=== PATIENT | male | born 1960 | race Caucasian/White ===

== ENCOUNTER 2019-11-03 06:10 | Emergency (ER) | payer MEDICAID ==
[~2019-11-03] VITALS: Ht 170.2 cm; Wt 59.8 kg
[~2019-11-03 06:10] MED LIST: METF500T17 PO; QUET300T5 PO
--- NOTE | 2019-11-03 06:56 | NUR ---
REPORT RECIEVED ÁNGEL BACA RN. PATIENT RESTIGN IN BED, CALL LIGHT IN REACH. JUANCHO SAUNDERS AT BEDSIDE FOR EVALUATION.
[2019-11-03] MEDS ORDERED: HYDROcodone/APAP 5/325 TABLET PO ONE (07:00)
[2019-11-03] MEDS ORDERED: GABAPENTIN 300 MG CAPSULE PO ONE (07:00)
[2019-11-03] MEDS ORDERED: INSU100I34 SC (07:01)
[2019-11-03] MEDS ORDERED: GABA300C10 PO (07:01)
[2019-11-03] MEDS ORDERED: TRAZ-137 PO (07:01)
[2019-11-03] MEDS ORDERED: INSU100I17 SC (07:01)
[2019-11-03] MEDS ORDERED: GABAPENTIN 300 MG CAPSULE ONE (07:29)
[2019-11-03] MEDS ORDERED: HYDROcodone/APAP 5/325 TABLET ONE (07:29)
[2019-11-03 07:42] LABS: BASOPHILS # (AUTO) 0.12 x10^3/uL (0-0.1); BASOPHILS % (AUTO) 1 % (0-1); EOSINOPHILS # (AUTO) 0.11 x10^3/uL (0-0.4); EOSINOPHILS % (AUTO) 1 % (1-7); LYMPHOCYTES # (AUTO) 2.32 x10^3/uL (1-3.4); LYMPHOCYTES % (AUTO) 23 % (22-44); MD NO; MEAN CORPUSCULAR HEMOGLOBIN 24.4 pg (27.5-34.5); MEAN CORPUSCULAR HGB CONC 31.1 g/dL (33.2-36.2); MEAN CORPUSCULAR VOLUME 78.2 fL (81-97); MEAN PLATELET VOLUME 6.3 fL (7.4-10.4); MONOCYTES # (AUTO) 1.02 x10^3/uL (0.2-0.8); MONOCYTES % (AUTO) 10 % (2-9); NEUTROPHILS # (AUTO) 6.42 x10^3/uL (1.8-6.8); NEUTROPHILS % (AUTO) 64 % (42-75); PLATELET COUNT 706 x10^3/uL (130-400); RED BLOOD COUNT 3.54 x10^6/uL (4.38-5.82); RED CELL DISTRIBUTION WIDTH 15.4 % (9.4-14.8)
[2019-11-03 07:43] LABS: ALANINE AMINOTRANSFERASE 20 U/L (12-78); ALBUMIN 2.7 g/dL (3.4-5.0); ANION GAP 7 mmol/L (5-15); CALCIUM 8.2 mg/dL (8.5-10.1); CHLORIDE 103 mmol/L (98-107)
[2019-11-03 07:46] LABS: ALKALINE PHOSPHATASE 144 U/L (45-117); BILIRUBIN,TOTAL 0.6 mg/dL (0.2-1.0); CREATININE 0.97 mg/dL (0.7-1.3); TOTAL PROTEIN 7.2 g/dL (6.4-8.2)
--- NOTE | 2019-11-03 07:59 | NUR ---
DUPLEX US COMPLETED. PT RESTING IN BED
--- NOTE | 2019-11-03 08:41 | NUR ---
PT RESTING IN BED. REPORTS "INTERMITTENT LEG CRAMPS BUT DOESNT HAVE APPETITE AND DOESTN LIKE TO DRINKN WATER." CALL LIGHT IN REACH.
[2019-11-03 08:42] VITALS: BP 116/79
--- NOTE | 2019-11-03 09:06 | NUR ---
DISCHARGE INSTRUCTIONS REVIEWED
== END 2019-11-03 09:30 | disposition home or self-care (01) ==
LOC: ED 09:11
DX: D50.9 Iron deficiency anemia, unspecified (principal); E11.65 Type 2 diabetes mellitus with hyperglycemia; E11.42 Type 2 diabetes mellitus with diabetic polyneuropathy; F17.200 Nicotine dependence, unspecified, uncomplicated
CPT/HCPCS: 36415; 80053; 85025; 93970; 99284

== ENCOUNTER 2020-04-08 14:30 | Inpatient (IN) | payer MEDICAID ==
[~2020-04-08] VITALS: Ht 170.2 cm; Wt 50.6 kg
[~2020-04-08 14:30] MED LIST changes: +GABA300C10 PO; +INSU100I17 SC; +INSU100I34 SC; +TRAZ-175 PO
--- NOTE | 2020-04-08 14:41 | NUR ---
BIB EMS,Lung biopsy left side done today at [facility] when he passed out for 30 sec, given 1500ml NS at the diagnostic center. HX DM. PT in bed with cont sales and service agent, spo2, bp q 30 min, side rails up x2, bp q 30. Awating MD to see. call light in reach.
[2020-04-08] MEDS ORDERED: SODIUM CHLORIDE 0.9% 1,000ML IVBOLUS ONE (17:30)
[2020-04-08] MEDS ORDERED: SODIUM CHLORIDE FLUSH 10ML SYR IVF ONE (17:30)
--- NOTE | 2020-04-08 17:35 | NUR ---
pt brother [phone]
[2020-04-08 17:45] LABS: BASOPHILS # (AUTO) 0.07 x10^3/uL (0-0.1); BASOPHILS % (AUTO) 1 % (0-1); EOSINOPHILS # (AUTO) 0.06 x10^3/uL (0-0.4); EOSINOPHILS % (AUTO) 0 % (1-7); LYMPHOCYTES # (AUTO) 2.34 x10^3/uL (1-3.4); LYMPHOCYTES % (AUTO) 17 % (22-44); MD NO; MEAN CORPUSCULAR HGB CONC 31.8 g/dL (33.2-36.2); MEAN CORPUSCULAR VOLUME 75.4 fL (81-97); MEAN PLATELET VOLUME 6.2 fL (7.4-10.4); MONOCYTES # (AUTO) 0.67 x10^3/uL (0.2-0.8); MONOCYTES % (AUTO) 5 % (2-9); NEUTROPHILS # (AUTO) 10.32 x10^3/uL (1.8-6.8); NEUTROPHILS % (AUTO) 77 % (42-75); PLATELET COUNT 465 x10^3/uL (130-400); RED BLOOD COUNT 4.15 x10^6/uL (4.38-5.82); RED CELL DISTRIBUTION WIDTH 20.9 % (9.4-14.8)
[2020-04-08 17:57] LABS: ALANINE AMINOTRANSFERASE 28 U/L (12-78); ALBUMIN 2.5 g/dL (3.4-5.0); ANION GAP 9 mmol/L (5-15); CALCIUM 8.2 mg/dL (8.5-10.1); CHLORIDE 101 mmol/L (98-107)
[2020-04-08 18:01] LABS: ALKALINE PHOSPHATASE 140 U/L (45-117); BILIRUBIN,TOTAL 0.2 mg/dL (0.2-1.0); TOTAL PROTEIN 6.9 g/dL (6.4-8.2)
[2020-04-08 18:10] LABS: MICROSCOPIC INDICATED
[2020-04-08] MEDS ORDERED: BISACODYL 10 MG SUPP PR PRN (18:30)
[2020-04-08] MEDS ORDERED: ONDANSETRON ODT 4 MG PO PRN (18:30)
[2020-04-08] MEDS ORDERED: POLYETHYLENE GLYCOL 17 GM PACKET PO PRN (18:30)
[2020-04-08] MEDS: AZITHROMYCIN 500 MG in SODIUM CHLORIDE 0.9% 250 ML IV SCH (18:30)
--- NOTE | 2020-04-08 18:53 | NUR ---
REPORT RECIEVED FROM ETHAN AMANDA.
[2020-04-08] MEDS ORDERED: CEFTRIAXONE PMX 1GM/50ML 50 ML ONE (18:57)
[2020-04-08] MEDS: CEFTRIAXONE PMX 1GM/50ML 50 ML IV SCH (19:00)
--- NOTE | 2020-04-08 19:30 | NUR ---
PATIENT UPDATED ON PLAN OF CARE. NO NOTED ACUTE DISTRESS. PATIENT DENIES ANY FURTHER NEEDS. IV SITE HAS BEEN RE-TAPED, AND EDUCATION GIVEN REGARDING NEED FOR ARM EXTENSION.
[2020-04-08 20:00] LABS: ESTIMATED AVERAGE GLUCOSE 355 mg/dL (0-126)
--- NOTE | 2020-04-08 20:17 | NUR ---
PATIENT UPDATED ON PLAN OF CARE. ITALO LONG GIVEN REPORT, ADMINISTERED ANTIBIOTIC THERAPY. ROCEPHIN HAS FINISHED, PATIENT DENIES ANY COMPLICATIONS FROM THERAPY.
[2020-04-08 21:15] VITALS: BP 112/78
[2020-04-08 21:18] VITALS: BP 109/81
[2020-04-08 21:20] VITALS: BP 107/68
[2020-04-08] MEDS: TRAZODONE 100MG TABLET PO SCH (21:45)
[2020-04-08] MEDS: QUETIAPINE 100MG TABLET PO SCH (21:45)
[2020-04-08] MEDS: metFORMIN 500 MG TABLET PO SCH (21:45)
[2020-04-08] MEDS: SODIUM CHLORIDE 0.9% 1,000 ML IV SCH (21:46)
[2020-04-08] MEDS: NICOTINE 7 MG/24 HR PATCH.TD24 TD SCH (21:46)
[2020-04-08] MEDS ORDERED: ALBUTEROL SULFATE 2.5 MG/3 ML NPPB PRN (22:00)
[2020-04-08] MEDS: INSULIN LISPRO 100 UNITS/ML, PEN SQ-INSULIN SCH (22:56)
[2020-04-08 23:37] LABS: TROPONIN I < 0.015 ng/mL (0.000-0.045)
[2020-04-09] VITALS (8 sets, daily range): BP systolic 95–128; BP diastolic 63–74
[2020-04-09] MEDS: SODIUM CHLORIDE 0.9% 1,000 ML IV SCH ×3 (05:10→20:39)
[2020-04-09 05:47] LABS: BASOPHILS # (AUTO) 0.07 x10^3/uL (0-0.1); BASOPHILS % (AUTO) 1 % (0-1); EOSINOPHILS # (AUTO) 0.17 x10^3/uL (0-0.4); EOSINOPHILS % (AUTO) 2 % (1-7); LYMPHOCYTES # (AUTO) 2.54 x10^3/uL (1-3.4); LYMPHOCYTES % (AUTO) 30 % (22-44); MD NO; MEAN CORPUSCULAR HEMOGLOBIN 23.7 pg (27.5-34.5); MEAN CORPUSCULAR HGB CONC 31.4 g/dL (33.2-36.2); MEAN CORPUSCULAR VOLUME 75.6 fL (81-97); MEAN PLATELET VOLUME 6.2 fL (7.4-10.4); MONOCYTES # (AUTO) 0.65 x10^3/uL (0.2-0.8); MONOCYTES % (AUTO) 8 % (2-9); NEUTROPHILS # (AUTO) 5.08 x10^3/uL (1.8-6.8); NEUTROPHILS % (AUTO) 60 % (42-75); PLATELET COUNT 468 x10^3/uL (130-400); RED BLOOD COUNT 3.94 x10^6/uL (4.38-5.82); RED CELL DISTRIBUTION WIDTH 20.9 % (9.4-14.8)
[2020-04-09 05:56] LABS: ANION GAP 5 mmol/L (5-15); CALCIUM 8.1 mg/dL (8.5-10.1); CHLORIDE 107 mmol/L (98-107)
[2020-04-09 06:02] LABS: CREATININE 0.92 mg/dL (0.7-1.3); TROPONIN I < 0.015 ng/mL (0.000-0.045)
[2020-04-09] MEDS: QUETIAPINE 100MG TABLET PO SCH ×2 (08:30→20:35)
[2020-04-09] MEDS: GABAPENTIN 300 MG CAPSULE PO SCH (08:30)
[2020-04-09] MEDS: metFORMIN 500 MG TABLET PO SCH ×2 (08:30→17:19)
[2020-04-09] MEDS: INSULIN LISPRO 100 UNITS/ML, PEN SQ-INSULIN SCH ×4 (08:31→20:36)
[2020-04-09] MEDS: INSULN ASP PRT SC SCH (09:00)
[2020-04-09] MEDS: SENNA/DOCUSATE TABLET PO SCH (09:00)
[2020-04-09] MEDS ORDERED: INSULIN GLARGINE 100 UNITS/ML, PEN SQ-INSULIN SCH (09:00)
[2020-04-09] MEDS: [UNRECOGNIZED DRUG - OTHER] SC SCH (09:00)
[2020-04-09] MEDS: INSULIN ASPART SC SCH (09:00)
[2020-04-09] MEDS: INSULIN GLARGINE 100 UNITS/ML, PEN SQ-INSULIN SCH (09:08)
[2020-04-09] MEDS: CEFTRIAXONE PMX 1GM/50ML 50 ML IV SCH (17:19)
[2020-04-09] MEDS: NICOTINE 7 MG/24 HR PATCH.TD24 TD SCH (17:57)
[2020-04-09] MEDS ORDERED: OMNIPAQUE 350 MG/ML, 75ML BOTTLE ONE (17:59)
[2020-04-09] MEDS: AZITHROMYCIN 500 MG in SODIUM CHLORIDE 0.9% 250 ML IV SCH (18:22)
[2020-04-09] MEDS: TRAZODONE 100MG TABLET PO SCH (20:35)
[2020-04-10 03:00] VITALS: BP 120/78
[2020-04-10 03:02] VITALS: BP 104/70
[2020-04-10 03:06] VITALS: BP 89/59
[2020-04-10] MEDS: SODIUM CHLORIDE 0.9% 1,000 ML IV SCH (05:39)
[2020-04-10 05:43] LABS: BASOPHILS # (AUTO) 0.05 x10^3/uL (0-0.1); BASOPHILS % (AUTO) 1 % (0-1); EOSINOPHILS # (AUTO) 0.17 x10^3/uL (0-0.4); EOSINOPHILS % (AUTO) 2 % (1-7); LYMPHOCYTES # (AUTO) 2.26 x10^3/uL (1-3.4); LYMPHOCYTES % (AUTO) 22 % (22-44); MD NO; MEAN CORPUSCULAR HEMOGLOBIN 23.9 pg (27.5-34.5); MEAN CORPUSCULAR HGB CONC 31.3 g/dL (33.2-36.2); MEAN CORPUSCULAR VOLUME 76.2 fL (81-97); MEAN PLATELET VOLUME 6.6 fL (7.4-10.4); MONOCYTES # (AUTO) 0.57 x10^3/uL (0.2-0.8); MONOCYTES % (AUTO) 6 % (2-9); NEUTROPHILS # (AUTO) 7.39 x10^3/uL (1.8-6.8); NEUTROPHILS % (AUTO) 71 % (42-75); PLATELET COUNT 445 x10^3/uL (130-400); RED BLOOD COUNT 3.77 x10^6/uL (4.38-5.82); RED CELL DISTRIBUTION WIDTH 21.5 % (9.4-14.8)
[2020-04-10] MEDS: INSULIN LISPRO 100 UNITS/ML, PEN SQ-INSULIN SCH ×4 (07:00→20:27)
[2020-04-10 07:58] VITALS: BP 120/76
[2020-04-10] MEDS: SENNA/DOCUSATE TABLET PO SCH (08:35)
[2020-04-10] MEDS: INSULN ASP PRT SC SCH (08:36)
[2020-04-10] MEDS: INSULIN ASPART SC SCH (08:36)
[2020-04-10] MEDS: [UNRECOGNIZED DRUG - OTHER] SC SCH (08:36)
[2020-04-10] MEDS: metFORMIN 500 MG TABLET PO SCH ×2 (09:00→16:29)
[2020-04-10] MEDS: GABAPENTIN 300 MG CAPSULE PO SCH (09:00)
[2020-04-10] MEDS: QUETIAPINE 100MG TABLET PO SCH ×2 (09:01→20:26)
[2020-04-10] MEDS: INSULIN GLARGINE 100 UNITS/ML, PEN SQ-INSULIN SCH (09:01)
[2020-04-10] MEDS: ACETAMINOPHEN 325 MG TABLET PO PRN (09:02)
[2020-04-10 15:56] VITALS: BP 113/75
[2020-04-10] MEDS: CEFTRIAXONE PMX 1GM/50ML 50 ML IV SCH (17:42)
[2020-04-10] MEDS: AZITHROMYCIN 500 MG in SODIUM CHLORIDE 0.9% 250 ML IV SCH (18:31)
[2020-04-10] MEDS: NICOTINE 7 MG/24 HR PATCH.TD24 TD SCH (18:34)
[2020-04-10 19:20] VITALS: BP 121/70
[2020-04-10] MEDS: TRAZODONE 100MG TABLET PO SCH (20:26)
[2020-04-11] VITALS (9 sets, daily range): BP systolic 96–117; BP diastolic 65–85
[2020-04-11] MEDS: INSULIN ASPART SC SCH (08:03)
[2020-04-11] MEDS: SENNA/DOCUSATE TABLET PO SCH (08:03)
[2020-04-11] MEDS: INSULN ASP PRT SC SCH (08:03)
[2020-04-11] MEDS: [UNRECOGNIZED DRUG - OTHER] SC SCH (08:03)
[2020-04-11] MEDS: GABAPENTIN 300 MG CAPSULE PO SCH (08:13)
[2020-04-11] MEDS: metFORMIN 500 MG TABLET PO SCH ×2 (08:13→16:35)
[2020-04-11] MEDS: INSULIN LISPRO 100 UNITS/ML, PEN SQ-INSULIN SCH ×4 (08:13→20:30)
[2020-04-11] MEDS: QUETIAPINE 100MG TABLET PO SCH ×2 (08:13→20:29)
[2020-04-11] MEDS: FERROUS SULFATE 325 MG TABLET PO SCH ×3 (08:13→16:35)
[2020-04-11] MEDS: INSULIN GLARGINE 100 UNITS/ML, PEN SQ-INSULIN SCH (08:14)
[2020-04-11] MEDS: ACETAMINOPHEN 325 MG TABLET PO PRN (08:19)
[2020-04-11 09:12] LABS: CHOL/HDL RATIO 3.1; LDL/HDL RATIO 1.8 (0.5-3.0)
[2020-04-11] MEDS: AZITHROMYCIN 500 MG in SODIUM CHLORIDE 0.9% 250 ML IV SCH (18:30)
[2020-04-11] MEDS: NICOTINE 7 MG/24 HR PATCH.TD24 TD SCH (18:42)
[2020-04-11] MEDS: CEFTRIAXONE PMX 1GM/50ML 50 ML IV SCH (18:42)
[2020-04-11] MEDS: TRAZODONE 100MG TABLET PO SCH (20:29)
[2020-04-11] MEDS ORDERED: ATORVASTATIN 40 MG TABLET PO SCH (21:00)
[2020-04-12 01:31] VITALS: BP 110/75
[2020-04-12 07:47] VITALS: BP 119/83
[2020-04-12] MEDS: SENNA/DOCUSATE TABLET PO SCH (08:03)
[2020-04-12] MEDS: [UNRECOGNIZED DRUG - OTHER] SC SCH (08:06)
[2020-04-12] MEDS: INSULN ASP PRT SC SCH (08:06)
[2020-04-12] MEDS: INSULIN ASPART SC SCH (08:06)
[2020-04-12] MEDS: metFORMIN 500 MG TABLET PO SCH (08:14)
[2020-04-12] MEDS: FERROUS SULFATE 325 MG TABLET PO SCH ×2 (08:14→12:18)
[2020-04-12] MEDS: GABAPENTIN 300 MG CAPSULE PO SCH (08:14)
[2020-04-12] MEDS: QUETIAPINE 100MG TABLET PO SCH (08:14)
[2020-04-12] MEDS: INSULIN LISPRO 100 UNITS/ML, PEN SQ-INSULIN SCH ×2 (08:15→12:19)
[2020-04-12] MEDS: ACETAMINOPHEN 325 MG TABLET PO PRN (08:18)
[2020-04-12] MEDS ORDERED: CEFDINIR 300 MG CAPSULE PO SCH (09:00)
[2020-04-12] MEDS ORDERED: AZITHROMYCIN 500 MG TABLET PO SCH (09:00)
[2020-04-12] MEDS ORDERED: INSULIN GLARGINE 100 UNITS/ML, PEN SQ-INSULIN SCH (09:00)
[2020-04-12] MEDS ORDERED: ASPIRIN 81 MG TABLET EC PO SCH (09:00)
[2020-04-12] MEDS ORDERED: CEFD300C37 PO (09:02)
[2020-04-12] MEDS ORDERED: AZIT500T PO (09:02)
[2020-04-12] MEDS ORDERED: FERR-51 PO (09:02)
[2020-04-12] MEDS ORDERED: ASPI81TA45 PO (09:02)
[2020-04-12] MEDS ORDERED: ATOR20TA37 PO (09:02)
== END 2020-04-12 13:42 | DRG 73 ==
LOC: ED 17:17 → EDIP 17:18 → ED 18:04 → 4EST 20:38 → DCLOUNGE 04-12 13:32
PROVIDERS: ADMIT Internal Medicine; ATTEND Hospitalist
DX: G90.8 Other disorders of autonomic nervous system (principal); J15.6 Pneumonia due to other Gram-negative bacteria; E87.1 Hypo-osmolality and hyponatremia; E86.0 Dehydration; D47.3 Essential (hemorrhagic) thrombocythemia; E11.9 Type 2 diabetes mellitus without complications; E78.5 Hyperlipidemia, unspecified; D50.9 Iron deficiency anemia, unspecified; F17.200 Nicotine dependence, unspecified, uncomplicated; E11.65 Type 2 diabetes mellitus with hyperglycemia; F17.210 Nicotine dependence, cigarettes, uncomplicated; Z79.899 Other long term (current) drug therapy; Z79.4 Long term (current) use of insulin; Z83.3 Family history of diabetes mellitus
CPT/HCPCS: 36415; 70498; 71045; 80048; 80053; 80061; 81001; 82728; 82962; 83036; 83540; 83550; 83605; 84145; 84484; 85025; 93005; 93306; 93880; G0378; J0456; J0696; Q9967; J1815; J7030; J7050

== ENCOUNTER 2020-08-14 13:05 | Inpatient (IN) | payer MEDICAID ==
[~2020-08-14] VITALS: Ht 170.2 cm; Wt 57.6 kg
[~2020-08-14 13:05] MED LIST changes: +ASPI81TA45 PO; +ATOR20TA37 PO; +AZIT500T PO; +CEFD300C37 PO; +FERR-51 PO
[2020-08-14] MEDS ORDERED: SODIUM CHLORIDE FLUSH 10ML SYR IVF ONE (13:30)
[2020-08-14] MEDS ORDERED: ASPIRIN 81 MG TABLET CHEW PO ONE (13:30)
--- NOTE | 2020-08-14 13:30 | NUR ---
PT HAS CO SOB, CONGESTION, FATIGUE FOR 2 WEEKS. PT POOR HISTORIAN. PT IN MILD DISTRESS. RR 30. PLACED ON 4 L O2 NC, NO 94%. OTHER VSS, HX OF COPD, DM2. DENIES CP, N/V. PRODUCTIVE COUGH PRESENT, YARD DEMURRAGE CLERK IN PLACE.
[2020-08-14] MEDS ORDERED: ASPIRIN 81 MG TABLET CHEW ONE (13:39)
[2020-08-14] MEDS ORDERED: AZITHROMYCIN 500 MG in SODIUM CHLORIDE 0.9% 250 ML IV ONE (14:00)
[2020-08-14] MEDS ORDERED: SODIUM CHLORIDE 0.9% 1,000 ML IV ONE (14:00)
[2020-08-14] MEDS ORDERED: CEFTRIAXONE PMX 1GM/50ML 50 ML IV ONE (14:00)
[2020-08-14 14:03] LABS: MEAN CORPUSCULAR HEMOGLOBIN 26.4 pg (27.5-34.5); MEAN CORPUSCULAR HGB CONC 32.2 g/dL (33.2-36.2); MEAN PLATELET VOLUME 7.7 fL (7.4-10.4); PLATELET COUNT 454 x10^3/uL (130-400); RED BLOOD COUNT 4.68 x10^6/uL (4.38-5.82); RED CELL DISTRIBUTION WIDTH 16.5 % (9.4-14.8)
[2020-08-14 14:05] LABS: ALANINE AMINOTRANSFERASE 15 U/L (12-78); ALBUMIN 2.1 g/dL (3.4-5.0); ANION GAP 16 mmol/L (5-15); CALCIUM 9.4 mg/dL (8.5-10.1); CHLORIDE 94 mmol/L (98-107); CREATININE 1.65 mg/dL (0.7-1.3)
[2020-08-14 14:09] LABS: ALKALINE PHOSPHATASE 161 U/L (45-117); BILIRUBIN,TOTAL 0.4 mg/dL (0.2-1.0); TOTAL PROTEIN 7.6 g/dL (6.4-8.2); TROPONIN I < 0.015 ng/mL (0.000-0.045)
[2020-08-14 14:16] LABS: PH, VENOUS 7.303 pH (7.320-7.420)
[2020-08-14] MEDS ORDERED: CEFTRIAXONE PMX 1GM/50ML 50 ML ONE (14:20)
--- NOTE | 2020-08-14 14:26 | NUR ---
BLOOD CULTURES DRAWN PRIOR ABX ADMIN
[2020-08-14 14:28] LABS: MD YES
[2020-08-14 14:34] LABS: BAND#(MANUAL) 3.28 x10^3/uL; BANDS%(MANUAL) 25 % (0-7); LYMPH#(MANUAL) 0.52 x10^3/uL (1-3.4); LYMPHS% (MANUAL) 4 % (22-44); MONOS#(MANUAL) 0.13 x10^3/uL (0.3-2.7); MONOS% (MANUAL) 1 % (2-9); SEG#(MANUAL) 9.17 x10^3/uL (1.8-6.8); SEGS% (MANUAL) 70 % (42-75)
[2020-08-14 14:37] LABS: <PLATELET ESTIMATE> INCREASED; <PLT MORPHOLOGY> NORMAL PLT MORPH; <RBC MORPHOLOGY> NORMAL
[2020-08-14 15:13] LABS: ACETONE, SERUM Trace (Negative)
--- NOTE | 2020-08-14 15:19 | NUR ---
UA SENT, VSS. CALL LIGHT IN REACH.
[2020-08-14] MEDS ORDERED: SODIUM CHLORIDE 0.9%, 500ML IVBOLUS ONE (15:30)
[2020-08-14] MEDS ORDERED: POTASSIUM CHLORIDE 40 MEQ in SODIUM CHLORIDE 0.9% 500 ML IV ONE (15:30)
[2020-08-14 15:31] LABS: MICROSCOPIC AUTO
[2020-08-14] MEDS: FERROUS SULFATE 325 MG TABLET PO SCH (17:00)
[2020-08-14] MEDS: PIPERACILLIN/TAZO/PMX 3.375GM 50 ML IV SCH (17:00)
[2020-08-14] MEDS ORDERED: SODIUM CHLORIDE 0.9% 1,000 ML IV SCH (17:00)
[2020-08-14] MEDS ORDERED: POTASSIUM CHLORIDE 40 MEQ in SODIUM CHLORIDE 0.9% 1,000 ML IV SCH (17:00)
[2020-08-14] MEDS: ENOXAPARIN 40 MG/0.4 ML SQ SCH (17:00)
[2020-08-14] MEDS ORDERED: ONDANSETRON ODT 4 MG PO PRN (17:00)
--- NOTE | 2020-08-14 17:23 | NUR ---
PT CALMED DOWN FROM BEING ANXIOUS, NOW SLEEPING. VSS, SPO2 REMAINING ABOVE 95%
[2020-08-14] MEDS ORDERED: PIPERACILLIN/TAZO/PMX 3.375GM 50 ML ONE (17:40)
[2020-08-14] MEDS ORDERED: ENOXAPARIN 40 MG/0.4 ML ONE (17:40)
--- NOTE | 2020-08-14 17:45 | NUR ---
AMBULATED TO BATHROOM W RN ASSISTANCE. 5L O2 NC WHILE AMBULATION. PT TOLERATED
--- NOTE | 2020-08-14 18:36 | NUR ---
PT PLACED ON OPTI FLOW. PT WAS UNABLE TO MAINTAIN SPO2 AT 87% ON 6L. PT STILL IN RESP DISTRESS. PT TOLERATING OPTI FLOW. SPO2 MAINTAING IN 90S
[2020-08-14] MEDS: ALBUTEROL/IPRATROPIUM 2.5MG/0.5MG, 3 ML NPPB SCH ×2 (19:00→22:00)
[2020-08-14] MEDS ORDERED: ALBUTEROL/IPRATROPIUM 2.5MG/0.5MG, 3 ML NPPB PRN (19:00)
--- NOTE | 2020-08-14 19:08 | NUR ---
REPORT FROM ETHAN CABRERA. BEDSIDE. FIRST CONTACT, PT ON OPTIFLOW RR 36 SATS 98%, PT TIRED. HR 88 NSR NO ECTOPY. B/P 127/78. IVF BOLUS (FINAL) INFUSING, ABX FINISHED-FLUSHED. IV POTASSIUM INF ON PUMP. #2 IV AFTER MULTIPLE ATTEMPTS TO MIKE. WAITING FOR CCU BED. PT IS ALERT AND ORIENTED, TIRED-ANSWERS ONLY 1-2 WORDS, REPORTS ALL OVER BODY PAIN. HAS BEEN VOIDING PER URINAL. DINNER TRAY IN ROOM, PT NOT EATING. WILL CONTINUE TO MONITOR. AIDET PROVIDED. Addendum: 08/14/20 at 2007 by LLEEDaphne NOTED; 2ND LACTATE NOT DRAWN. INFORMED CN DEBORAH, SPOKE WITH ANA HOSPITALIST. LAB WAS CALLED AND REQUESTED TO DRAW STAT. PT HAS FINISHED HIS IVF BOLUS.
[2020-08-14 19:29] LABS: ESTIMATED AVERAGE GLUCOSE 355 mg/dL (0-126)
[2020-08-14] MEDS ORDERED: ALBUTEROL/IPRATROPIUM 2.5MG/0.5MG, 3 ML ONE (20:06)
--- NOTE | 2020-08-14 20:41 | NUR ---
REPORT TO CCU, PT AND BELONGINGS TO BE TX TO CCU. PT ENCOURAGED TO KEEP OXI ON. REMAINS STABLE VS. RR 30 AND SATS DROP TO 85% WHEN HE TAKES O2 OFF. STILL PENDING 2ND LACTATE. IVF BOLUS COMPLETED. POTASSIUM INFUSION COMPLETE.
[2020-08-14] MEDS: INSULIN LISPRO 100 UNITS/ML, PEN SQ-INSULIN SCH ×2 (21:00→21:24)
[2020-08-14] MEDS: morphine SULFATE 10 MG/ML, 1ML IVPush PRN ×2 (21:11→21:24)
[2020-08-14] MEDS: ATORVASTATIN 20 MG TABLET PO SCH (21:24)
[2020-08-14] MEDS ORDERED: NS + 40MEQ KCL 1,000 ML IV SCH (23:30)
[2020-08-15 00:45] VITALS: BP 102/68
[2020-08-15] MEDS: PIPERACILLIN/TAZO/PMX 3.375GM 50 ML IV SCH (01:27)
[2020-08-15 04:00] VITALS: BP 106/57
[2020-08-15 04:17] LABS: MEAN CORPUSCULAR HEMOGLOBIN 26.1 pg (27.5-34.5); MEAN CORPUSCULAR HGB CONC 32.3 g/dL (33.2-36.2); MEAN PLATELET VOLUME 7.5 fL (7.4-10.4); PLATELET COUNT 353 x10^3/uL (130-400); RED BLOOD COUNT 3.82 x10^6/uL (4.38-5.82); RED CELL DISTRIBUTION WIDTH 16.2 % (9.4-14.8)
[2020-08-15 04:25] LABS: ALBUMIN 1.5 g/dL (3.4-5.0); ANION GAP 6 mmol/L (5-15); CALCIUM 8.1 mg/dL (8.5-10.1); CHLORIDE 106 mmol/L (98-107)
[2020-08-15 04:29] LABS: ALANINE AMINOTRANSFERASE 17 U/L (12-78); ALKALINE PHOSPHATASE 161 U/L (45-117); BILIRUBIN,TOTAL 0.4 mg/dL (0.2-1.0); CREATININE 0.84 mg/dL (0.7-1.3); TOTAL PROTEIN 5.8 g/dL (6.4-8.2)
[2020-08-15 04:59] LABS: MD YES
[2020-08-15 05:06] LABS: ANISOCYTOSIS 1+; BAND#(MANUAL) 2.36 x10^3/uL; BANDS%(MANUAL) 19 % (0-7); BASOS#(MANUAL) 0.12 x10^3/uL (0-0.1); BASOS% (MANUAL) 1 % (0-1); EOS#(MANUAL) 0.12 x10^3/uL (0.0-0.4); EOS% (MANUAL) 1 % (1-7); LYMPH#(MANUAL) 0.87 x10^3/uL (1-3.4); LYMPHS% (MANUAL) 7 % (22-44); MONOS#(MANUAL) 0.25 x10^3/uL (0.3-2.7); MONOS% (MANUAL) 2 % (2-9); SEG#(MANUAL) 8.68 x10^3/uL (1.8-6.8); SEGS% (MANUAL) 70 % (42-75)
[2020-08-15 05:07] LABS: MICROCYTOSIS 1+; OVALOCYTES 1+; TOXIC GRAN 1+
[2020-08-15 05:08] LABS: <PLATELET ESTIMATE> ADEQUATE; <PLT MORPHOLOGY> NORMAL PLT MORPH
[2020-08-15] MEDS: ASPIRIN 81 MG TABLET EC PO SCH (06:04)
[2020-08-15] MEDS: morphine SULFATE 10 MG/ML, 1ML IVPush PRN ×2 (06:18→20:57)
[2020-08-15] MEDS ORDERED: CEFTRIAXONE PMX 1GM/50ML 50 ML IV SCH ×2 (06:30→18:30)
[2020-08-15] MEDS ORDERED: AZITHROMYCIN 500 MG in SODIUM CHLORIDE 0.9% 250 ML IV SCH (06:30)
[2020-08-15] MEDS ORDERED: MAGNESIUM SULFATE PMX 4GM/100M 100 ML IVPB ONE (06:30)
[2020-08-15] MEDS ORDERED: SODIUM PHOSPHATE 20 MMOL in SODIUM CHLORIDE 0.9% 500 ML IV ONE (06:30)
[2020-08-15] MEDS: ALBUTEROL/IPRATROPIUM 2.5MG/0.5MG, 3 ML NPPB SCH ×3 (07:15→15:20)
[2020-08-15] MEDS: INSULIN LISPRO 100 UNITS/ML, PEN SQ-INSULIN SCH ×4 (08:47→21:47)
[2020-08-15] MEDS: INSULIN GLARGINE 100 UNITS/ML, PEN SQ-INSULIN SCH (08:48)
[2020-08-15] MEDS: GABAPENTIN 300 MG CAPSULE PO SCH (08:48)
[2020-08-15] MEDS: POTASSIUM CHLORIDE 20 MEQ TAB.ER.PRT PO SCH ×2 (08:48→16:57)
[2020-08-15] MEDS: FERROUS SULFATE 325 MG TABLET PO SCH ×3 (08:48→16:57)
[2020-08-15] MEDS ORDERED: VANCOMYCIN PER PHARMACY MC PRN (12:00)
[2020-08-15] MEDS ORDERED: PHARMACOKINETIC CONSULTATION MC ONE (12:00)
[2020-08-15] MEDS ORDERED: PHARMACOKINETIC MONITORING MC PRN (12:00)
[2020-08-15] MEDS: VANCOMYCIN PMX 1GM/200ML 200 ML IVPB SCH (12:48)
[2020-08-15 14:12] VITALS: BP 123/73
[2020-08-15] MEDS: CEFTRIAXONE PMX 1GM/50ML 50 ML IV SCH (15:10)
[2020-08-15 16:31] VITALS: BP 96/58
[2020-08-15] MEDS: ENOXAPARIN 40 MG/0.4 ML SQ SCH (16:58)
[2020-08-15 18:25] VITALS: BP 119/76
[2020-08-15] MEDS: ALBUTEROL-IPRATROPIUM MDI INH INH SCH ×2 (18:45→21:28)
[2020-08-15] MEDS: ATORVASTATIN 20 MG TABLET PO SCH (20:56)
[2020-08-16] MEDS: ONDANSETRON 2MG/ML, 2ML IVPush PRN (00:10)
[2020-08-16] MEDS: VANCOMYCIN PMX 1GM/200ML 200 ML IVPB SCH ×2 (01:04→13:44)
[2020-08-16 01:14] VITALS: BP 130/67
[2020-08-16] MEDS: CEFTRIAXONE PMX 1GM/50ML 50 ML IV SCH (03:11)
[2020-08-16 05:20] LABS: CALCIUM 7.9 mg/dL (8.5-10.1); CHLORIDE 103 mmol/L (98-107)
[2020-08-16 05:24] LABS: ANION GAP 7 mmol/L (5-15)
[2020-08-16 05:53] LABS: MEAN CORPUSCULAR HEMOGLOBIN 26.2 pg (27.5-34.5); MEAN CORPUSCULAR HGB CONC 32.3 g/dL (33.2-36.2); MEAN PLATELET VOLUME 7.7 fL (7.4-10.4); PLATELET COUNT 359 x10^3/uL (130-400); RED BLOOD COUNT 3.57 x10^6/uL (4.38-5.82); RED CELL DISTRIBUTION WIDTH 16.5 % (9.4-14.8)
[2020-08-16] MEDS: ASPIRIN 81 MG TABLET EC PO SCH (05:59)
[2020-08-16] MEDS: ALBUTEROL-IPRATROPIUM MDI INH INH SCH ×5 (06:00→21:34)
[2020-08-16] MEDS: morphine SULFATE 10 MG/ML, 1ML IVPush PRN (06:14)
[2020-08-16 06:30] LABS: MD YES
[2020-08-16 06:32] LABS: BAND#(MANUAL) 1.44 x10^3/uL; BANDS%(MANUAL) 11 % (0-7); BASOS#(MANUAL) 0.13 x10^3/uL (0-0.1); BASOS% (MANUAL) 1 % (0-1); EOS#(MANUAL) 0.26 x10^3/uL (0.0-0.4); EOS% (MANUAL) 2 % (1-7); LYMPH#(MANUAL) 1.97 x10^3/uL (1-3.4); LYMPHS% (MANUAL) 15 % (22-44); MONOS#(MANUAL) 0.92 x10^3/uL (0.3-2.7); MONOS% (MANUAL) 7 % (2-9); POLYCHROMASIA 1+; SEG#(MANUAL) 8.38 x10^3/uL (1.8-6.8); SEGS% (MANUAL) 64 % (42-75)
[2020-08-16 06:33] LABS: <PLATELET ESTIMATE> ADEQUATE; <PLT MORPHOLOGY> NORMAL PLT MORPH; ANISOCYTOSIS 1+; OVALOCYTES 1+; TOXIC GRAN 1+
[2020-08-16] MEDS: GUAIFENESIN/DM 200-20MG, 10ML UDC PO SCH ×3 (06:51→20:31)
[2020-08-16 07:07] VITALS: BP 110/65
[2020-08-16] MEDS: GABAPENTIN 300 MG CAPSULE PO SCH (07:32)
[2020-08-16] MEDS: INSULIN GLARGINE 100 UNITS/ML, PEN SQ-INSULIN SCH (07:32)
[2020-08-16] MEDS: FERROUS SULFATE 325 MG TABLET PO SCH ×4 (07:32→16:41)
[2020-08-16] MEDS: INSULIN LISPRO 100 UNITS/ML, PEN SQ-INSULIN SCH ×5 (07:33→20:48)
[2020-08-16] MEDS ORDERED: INSULIN GLARGINE 100 UNITS/ML, PEN SQ-INSULIN SCH (09:00)
[2020-08-16] MEDS: K-PHOS NEUTRAL 250MG TAB PO SCH ×4 (09:18→20:31)
[2020-08-16] MEDS: MAGNESIUM OXIDE 400 MG TABLET PO SCH ×2 (09:18→20:31)
[2020-08-16] MEDS: GUAIFENESIN 200 MG TABLET PO SCH ×4 (10:46→20:31)
[2020-08-16 13:02] VITALS: BP 106/66
[2020-08-16] MEDS: CEFAZOLIN 2,000 MG in SODIUM CHLORIDE 0.9% 50 ML IV SCH ×2 (15:09→22:47)
[2020-08-16] MEDS: ENOXAPARIN 40 MG/0.4 ML SQ SCH ×2 (16:27→16:41)
[2020-08-16] MEDS: POTASSIUM CHLORIDE 20 MEQ TAB.ER.PRT PO SCH ×2 (16:27→16:41)
[2020-08-16 18:32] VITALS: BP 118/67
[2020-08-16] MEDS: ATORVASTATIN 20 MG TABLET PO SCH (20:31)
[2020-08-16] MEDS ORDERED: OMNIPAQUE 350 MG/ML, 75ML BOTTLE ONE (21:30)
[2020-08-17] MEDS: GUAIFENESIN/DM 200-20MG, 10ML UDC PO SCH ×2 (01:04→07:00)
[2020-08-17 01:47] VITALS: BP 131/68
[2020-08-17] MEDS ORDERED: ACETAMINOPHEN 325 MG TABLET PO ONE (05:00)
[2020-08-17] MEDS: GUAIFENESIN 200 MG TABLET PO SCH ×2 (05:43→10:46)
[2020-08-17] MEDS: ASPIRIN 81 MG TABLET EC PO SCH (06:09)
[2020-08-17] MEDS: ALBUTEROL-IPRATROPIUM MDI INH INH SCH ×2 (06:41→11:27)
[2020-08-17 06:43] LABS: ALBUMIN 1.3 g/dL (3.4-5.0); ANION GAP 7 mmol/L (5-15); CALCIUM 7.9 mg/dL (8.5-10.1); CHLORIDE 102 mmol/L (98-107)
[2020-08-17 06:46] LABS: CREATININE 0.61 mg/dL (0.7-1.3)
[2020-08-17 06:47] LABS: ALANINE AMINOTRANSFERASE 35 U/L (12-78); ALKALINE PHOSPHATASE 211 U/L (45-117); BILIRUBIN,TOTAL 0.7 mg/dL (0.2-1.0); TOTAL PROTEIN 5.8 g/dL (6.4-8.2)
[2020-08-17 06:48] LABS: MEAN CORPUSCULAR HEMOGLOBIN 26.7 pg (27.5-34.5); MEAN CORPUSCULAR HGB CONC 33.1 g/dL (33.2-36.2); MEAN PLATELET VOLUME 7.6 fL (7.4-10.4); PLATELET COUNT 422 x10^3/uL (130-400); RED BLOOD COUNT 3.57 x10^6/uL (4.38-5.82); RED CELL DISTRIBUTION WIDTH 16.1 % (9.4-14.8)
[2020-08-17] MEDS ORDERED: CEFTRIAXONE PMX 2GM/50ML 50 ML IV SCH (07:00)
[2020-08-17] MEDS: INSULIN LISPRO 100 UNITS/ML, PEN SQ-INSULIN SCH ×2 (07:00→11:35)
[2020-08-17] MEDS ORDERED: CEFAZOLIN PMX 2GM/50ML 50 ML IVPB SCH (07:00)
[2020-08-17 07:10] LABS: MD YES
[2020-08-17 07:11] LABS: ANISOCYTOSIS 1+; BAND#(MANUAL) 0.16 x10^3/uL; BANDS%(MANUAL) 1 % (0-7); LYMPH#(MANUAL) 2.23 x10^3/uL (1-3.4); LYMPHS% (MANUAL) 14 % (22-44); MONOS#(MANUAL) 0.48 x10^3/uL (0.3-2.7); MONOS% (MANUAL) 3 % (2-9); MYELOCYTES# (MANUAL) 0.16 x10^3/uL (0-0); MYELOCYTES% (MANUAL) 1 % (0-0); OVALOCYTES 1+; SEG#(MANUAL) 12.88 x10^3/uL (1.8-6.8); SEGS% (MANUAL) 81 % (42-75)
[2020-08-17 07:12] LABS: <PLATELET ESTIMATE> ADEQUATE; <PLT MORPHOLOGY> NORMAL PLT MORPH
[2020-08-17] MEDS: ONDANSETRON 2MG/ML, 2ML IVPush PRN (07:29)
[2020-08-17] MEDS: POTASSIUM CHLORIDE 20 MEQ TAB.ER.PRT PO SCH ×3 (08:00→09:00)
[2020-08-17] MEDS: FERROUS SULFATE 325 MG TABLET PO SCH ×2 (08:00→10:46)
[2020-08-17] MEDS: MAGNESIUM OXIDE 400 MG TABLET PO SCH (08:16)
[2020-08-17] MEDS: GABAPENTIN 300 MG CAPSULE PO SCH (08:16)
[2020-08-17] MEDS: K-PHOS NEUTRAL 250MG TAB PO SCH ×2 (08:20→08:22)
[2020-08-17 08:43] VITALS: BP 96/60
[2020-08-17] MEDS ORDERED: POTASSIUM CHLORIDE 40 MEQ in SODIUM CHLORIDE 0.9% 500 ML IV ONE (09:30)
[2020-08-17] MEDS ORDERED: POTASSIUM CHLORIDE 20 MEQ TAB.ER.PRT PO SCH (16:00)
[2020-08-18] MEDS ORDERED: INSULIN GLARGINE 100 UNITS/ML, PEN SQ-INSULIN SCH (09:00)
== END 2020-08-17 12:45 | disposition left against medical advice (07) | DRG 871 ==
LOC: ED 13:55 → EDIP 15:23 → CCU 20:56 → 3N 08-15 16:24
PROVIDERS: ADMIT Internal Medicine; ATTEND Internal Medicine
DX: A41.01 Sepsis due to Methicillin susceptible Staphylococcus aureus (principal); E11.10 Type 2 diabetes mellitus with ketoacidosis without coma; G93.41 Metabolic encephalopathy; J18.9 Pneumonia, unspecified organism; J96.01 Acute respiratory failure with hypoxia; N17.0 Acute kidney failure with tubular necrosis; E46 Unspecified protein-calorie malnutrition; E87.1 Hypo-osmolality and hyponatremia; D63.8 Anemia in other chronic diseases classified elsewhere; E78.5 Hyperlipidemia, unspecified; E83.39 Other disorders of phosphorus metabolism; E83.42 Hypomagnesemia; E87.6 Hypokalemia; F15.10 Other stimulant abuse, uncomplicated; F17.210 Nicotine dependence, cigarettes, uncomplicated; F41.1 Generalized anxiety disorder; I35.0 Nonrheumatic aortic (valve) stenosis; R65.20 Severe sepsis without septic shock; Z79.4 Long term (current) use of insulin; Z80.1 Family history of malignant neoplasm of trachea, bronchus and lung; Z83.3 Family history of diabetes mellitus; Z20.828 Contact with and (suspected) exposure to other viral communicable diseases
CPT/HCPCS: 36415; 71045; 71260; 80048; 80053; 80074; 81001; 82010; 82330; 82728; 82803; 82962; 83036; 83540; 83550; 83605; 83735; 83930; 84100; 84145; 84484; 85025; 86592; 87040; 87077; 87081; 87147; 87186; 87635; 87806; 93005; 93306; 94640; 96374; 96375; 99291; G0378; J0456; J0690; J0696; J1650; J2405; J2543; J3370; J3480; Q9967; G0475; J1815; J2270; J3475; J7030; J7040; J7050